=== PATIENT | male | born 1995 | race Caucasian/White ===

== ENCOUNTER 2018-05-24 22:19 | Emergency (ER) | payer MEDICAID ==
[~2018-05-24] VITALS: Ht 172.7 cm; Wt 81.8 kg
[2018-05-24 22:56] LABS: BASOPHILS % (AUTO) 0.4 % (0-1); EOSINOPHILS # (AUTO) 0.2 X10'3 (0-0.9); EOSINOPHILS % (AUTO) 3.1 % (0-6); HEMATOCRIT 45.3 % (42.0-52.0); HEMOGLOBIN 15.5 g/dl (14.0-17.9); LYMPHOCYTES # (AUTO) 2.1 X10'3 (1.1-4.8); LYMPHOCYTES % (AUTO) 32.7 % (21-51); MEAN CORPUSCULAR HEMOGLOBIN 32.2 PG (27.0-31.0); MEAN CORPUSCULAR HGB CONC 34.2 g/dL (33.0-36.5); MEAN PLATELET VOLUME 10.5 FL (7.4-10.4); MONOCYTES # (AUTO) 0.5 X10'3 (0-0.9); MONOCYTES % (AUTO) 7.5 % (2-12); NEUTROPHILS # (AUTO) 3.6 X10'3 (1.8-7.7); NEUTROPHILS % (AUTO) 56.3 % (42-75); PLATELET COUNT 168 X10'3 (140-440); RED BLOOD COUNT 4.82 X10'6 (4.70-6.10); RED CELL DISTRIBUTION WIDTH 13.9 % (11.5-14.5); WHITE BLOOD COUNT 6.5 X10'3 (4.5-11.0)
[2018-05-24 23:13] LABS: ALANINE AMINOTRANSFERASE 58 U/L (12-78); ALBUMIN 3.7 G/DL (3.4-5.0); ALKALINE PHOSPHATASE 130 IU/L (46-116); ANION GAP 10 (8-16); BILIRUBIN,TOTAL 0.2 MG/DL (0.1-1.0); BLOOD UREA NITROGEN 10 MG/DL (7-18); BUN/CREATININE RATIO 8.9 (5.4-32.0); CALCIUM 8.4 MG/DL (8.5-10.1); CHLORIDE 109 MMOL/L (99-107); CREATININE 1.12 MG/DL (0.60-1.10); SODIUM 147 MMOL/L (135-145); TOTAL CARBON DIOXIDE 28.1 MMOL/L (24-32); TOTAL PROTEIN 7.4 G/DL (6.4-8.2); eGFR 81 ML/MIN
[2018-05-24 23:27] LABS: GLUCOSE 104 MG/DL (70-104)
[2018-05-24 23:28] LABS: ASPARTATE AMINO TRANSFERASE 33 U/L (10-37); POTASSIUM 3.8 MMOL/L (3.5-5.1)
[2018-05-24 23:34] VITALS: BP 131/75
[2018-05-24 23:41] LABS: LARGE PLATELETS FEW; PLATELET ESTIMATE NORMAL
== END 2018-05-25 00:11 | disposition home or self-care (01) ==
LOC: ER 22:20
DX: K92.1 Melena (principal)
CPT/HCPCS: 36415; 80053; 85025; 99283

== ENCOUNTER 2022-09-13 07:49 | Emergency (ER) | payer MEDICAID ==
[~2022-09-13] VITALS: Ht 170.2 cm; Wt 82.7 kg
[2022-09-13] MEDS ORDERED: morphine 4 MG/ML inj SYRINge IV ONE (09:00)
[2022-09-13] MEDS ORDERED: ondansetron/PF 4mg/2ml inj IV ONE (09:00)
[2022-09-13] MEDS ORDERED: normal saline 1000ML IV soln IVB ONE (09:00)
[2022-09-13 09:48] LABS: BASOPHILS % (AUTO) 0.3 % (0-1); EOSINOPHILS % (AUTO) 0.3 % (0-6); HEMATOCRIT 40.5 % (42.0-52.0); HEMOGLOBIN 13.5 g/dl (14.0-17.9); LYMPHOCYTES # (AUTO) 0.7 X10'3 (1.1-4.8); LYMPHOCYTES % (AUTO) 10.4 % (21-51); MEAN CORPUSCULAR HEMOGLOBIN 30.6 PG (27.0-31.0); MEAN CORPUSCULAR HGB CONC 33.2 g/dL (33.0-36.5); MEAN PLATELET VOLUME 11.1 FL (7.4-10.4); MONOCYTES # (AUTO) 0.8 X10'3 (0-0.9); MONOCYTES % (AUTO) 11.9 % (2-12); NEUTROPHILS # (AUTO) 5.4 X10'3 (1.8-7.7); NEUTROPHILS % (AUTO) 77.1 % (42-75); PLATELET COUNT 107 X10'3 (140-440); RED CELL DISTRIBUTION WIDTH 16.8 % (11.5-14.5); WHITE BLOOD COUNT 7.1 X10'3 (4.5-11.0)
[2022-09-13 10:03] LABS: ALANINE AMINOTRANSFERASE 38 U/L (12-78); ALBUMIN 3.2 G/DL (3.4-5.0); ALBUMIN/GLOBULIN RATIO 0.9 (1.1-1.5); ALKALINE PHOSPHATASE 101 IU/L (46-116); ANION GAP 9 (8-16); ASPARTATE AMINO TRANSFERASE 22 U/L (10-37); BLOOD UREA NITROGEN 8 MG/DL (7-18); BUN/CREATININE RATIO 11.4 (10.0-20.0); CALCIUM 8.5 MG/DL (8.5-10.1); CHLORIDE 101 MMOL/L (99-107); GLUCOSE 94 MG/DL (70-104); LIPASE 195 U/L (73-393); POTASSIUM 3.8 MMOL/L (3.5-5.1); SODIUM 138 MMOL/L (135-145); TOTAL CARBON DIOXIDE 27.7 MMOL/L (24-32); TOTAL PROTEIN 6.9 G/DL (6.4-8.2); eGFR > 90 ML/MIN
[2022-09-13 10:43] LABS: ANISOCYTOSIS 1+; LARGE PLATELETS MODERATE; PLATELET ESTIMATE DECREASED
[2022-09-13 11:14] LABS: CLARITY,URINE CLEAR (Clear); COLOR,URINE YELLOW (Yellow); GLUCOSE, URINE NEGATIVE (Neg); KETONES,URINE TRACE mg/dl (Neg); LEUKOCYTE ESTERASE ,URINE NEGATIVE (Neg); NITRITES, URINE NEGATIVE (Neg); OCCULT BLOOD,URINE NEGATIVE (Neg); PH,URINE 7.5 (4.8-8.0); PROTEIN,URINE TRACE mg/dl (Neg)
[2022-09-13 11:41] LABS: UA COLLECTION TYPE CLN CATCH MIDSTREAM
[2022-09-13 11:47] LABS: BACTERIA,URINE NONE SEEN /HPF (Neg); MUCUS STRANDS NONE SEEN /LPF (Neg); RBC,URINE NONE SEEN /HPF (0-2); SQUAMOUS EPITHELIAL CELL,UR FEW /LPF (FEW); WBC,URINE NONE SEEN /HPF (0-4)
[2022-09-13] MEDS ORDERED: HYDR-3965 PO (12:55)
[2022-09-13 13:00] VITALS: BP 144/100
== END 2022-09-13 13:03 | disposition home or self-care (01) ==
LOC: ER 07:49
DX: R10.32 Left lower quadrant pain (principal); R11.0 Nausea; Z79.899 Other long term (current) drug therapy
CPT/HCPCS: 36415; 74176; 80053; 81001; 83690; 85008; 85025; 96361; 96374; 96375; 99285; J2270; J2405; J7030

== ENCOUNTER 2023-03-02 21:40 | Emergency (ER) | payer SELFPAY ==
[~2023-03-02] VITALS: Ht 167.6 cm; Wt 79.5 kg
[~2023-03-02 21:40] MED LIST: HYDR-3965 PO
[2023-03-02 21:53] VITALS: BP 144/96; PULSE 98; RESP 18; TEMP 98.5; O2SAT 98
== END 2023-03-03 00:31 | disposition left against medical advice (07) ==
LOC: ER 21:40
DX: F29 Unspecified psychosis not due to a substance or known physiological condition (principal); Z53.21 Procedure and treatment not carried out due to patient leaving prior to being seen by health care provider
CPT/HCPCS: 99281